=== PATIENT | female | born 1935 | race Caucasian/White ===

== ENCOUNTER 2017-09-01 16:12 | Inpatient (IN) | payer MEDICARE, BC ==
[2017-09-01] MEDS ORDERED: SODIUM CHLORIDE 0.9% 500 ML SOL IV SCH (16:30)
[2017-09-01] MEDS ORDERED: SODIUM CHLORIDE 0.9% 500 ML 500 ML IV SCH ×2 (16:45→20:15)
[2017-09-01 17:04] LABS: BASOPHILS % (AUTO) 0 % (0-3); EOSINOPHILS % (AUTO) 0 % (0-9); HEMATOCRIT 38 % (35-47); MEAN CORPUSCULAR HGB CONC 32.5 gm/dl (32.0-36.0); MEAN CORPUSCULAR VOLUME 94 fL (81-99); MONOCYTES % (AUTO) 4.5 % (0-12); NEUTROPHILS % (AUTO) 81.2 % (37-80)
[2017-09-01 17:29] LABS: ALBUMIN 3.6 gm/dl (3.4-5.0); CALCIUM 9.6 mg/dl (8.5-10.1); POTASSIUM 3.6 mMol/L (3.5-5.1); THYROID STIMULATING HORMONE 1.585 uIU/ml (0.358-3.740)
[2017-09-01] MEDS ORDERED: Non-Formulary Medication MISC (Polyethylene Glycol 3350 [Polyethylene Glycol* (Miralax)] PO PRN (17:53)
[2017-09-01] MEDS ORDERED: POLYETHYLENE GLYCOL 17 GM/1 TBS PDS PO PRN (18:05)
[2017-09-01] MEDS: MORPHINE SULFATE 10 MG/ML SOL IV PRN ×2 (18:21→23:00)
[2017-09-01] MEDS: SODIUM CHLORIDE 0.9% FLUSH 10 ML SOL IV SCH (18:22)
[2017-09-01] MEDS: DEXTROSE/SALINE 0.45/KCL 20MEQ 1,000 ML/1,000 ML SOL IV SCH (18:24)
[2017-09-01] MEDS: MEMANTINE HYDROCHLORIDE 10 MG TAB PO SCH (20:19)
[2017-09-01] MEDS: MIRTAZAPINE 15 MG TAB PO SCH (20:20)
[2017-09-02] MEDS: SODIUM CHLORIDE 0.9% FLUSH 10 ML SOL IV SCH ×6 (02:18→21:16)
[2017-09-02] MEDS: DEXTROSE/SALINE 0.45/KCL 20MEQ 1,000 ML/1,000 ML SOL IV SCH ×2 (03:04→12:55)
[2017-09-02 07:24] LABS: APPEARANCE,URINE Slightly Cloudy; BILIRUBIN,URINE NEGATIVE (NEGATIVE); COLOR,URINE Yellow; GLUCOSE, URINE (UA) NEGATIVE (NEGATIVE); KETONES,URINE NEGATIVE (NEGATIVE); LEUKOCYTE ESTERASE ,URINE NEGATIVE (NEGATIVE); NITRATE,URINE NEGATIVE (NEGATIVE); OCCULT BLOOD,URINE NEGATIVE (NEG-TRACE); PH,URINE 8.5; UROBILINOGEN,URINE 0.2 (0.2-1.0 EU)
[2017-09-02] MEDS: LEVOTHYROXINE SODIUM 50 MCG TAB PO SCH (07:24)
[2017-09-02 07:38] LABS: RBC,URINE NEG (0-3AV/HPF); WBC,URINE 0-1 (0-5AV/HPF)
[2017-09-02] MEDS ORDERED: CEFAZOLIN SODIUM 1 GM PDS IV ONE (07:40)
[2017-09-02] MEDS ORDERED: BUPIVACAINE LIPOSOME 20 ML SUS ONE (07:43)
[2017-09-02] MEDS ORDERED: TRANEXAMIC ACID 100 MG/ML SOL ONE (07:43)
[2017-09-02] MEDS ORDERED: SODIUM CHLORIDE 20 ML 40 ML ONE (07:43)
[2017-09-02] MEDS ORDERED: LACTATED RINGERS 1,000 ML IV ONE (08:00)
[2017-09-02] MEDS: SCOPOLAMINE 1.5MG PATCH TD SCH (08:03)
[2017-09-02] MEDS ORDERED: LIDOCAINE HCL 2% MPF SOL ONE (08:23)
[2017-09-02] MEDS ORDERED: BUPIVACAINE HCL 0.5% MPF 10 ML SOL ONE (08:23)
[2017-09-02] MEDS ORDERED: MIDAZOLAM 2 MG/2 ML SOL ONE (08:39)
[2017-09-02] MEDS ORDERED: FENTANYL 100MCG/2ML SOL ONE (08:40)
[2017-09-02] MEDS ORDERED: CEFAZOLIN SODIUM 1 GM PDS ONE ×2 (08:59→23:39)
[2017-09-02] MEDS ORDERED: EPHEDRINE SULFATE 50 MG/ML SOL ONE (09:37)
[2017-09-02 09:49] LABS: ABO A; ANTIBODY SCREEN Negative; RH TYPE Positive
[2017-09-02] MEDS ORDERED: SODIUM CHLORIDE 0.9% 500 ML 500 ML IV PRN (10:28)
[2017-09-02] MEDS ORDERED: ONDANSETRON HCL 4 MG/2 ML SOL IV PRN (10:28)
[2017-09-02] MEDS ORDERED: BISACODYL 10 MG SUP PR PRN (10:28)
[2017-09-02] MEDS ORDERED: DIPHENHYDRAMINE 25 MG CAP PO PRN (10:28)
[2017-09-02] MEDS ORDERED: ALUMINUM/MAGNESIUM 30 ML SUS PO PRN (10:28)
[2017-09-02] MEDS ORDERED: FLEET ENEMA PR PRN (10:28)
[2017-09-02] MEDS ORDERED: MAGNESIUM HYDROXIDE 30 ML SUS PO PRN (10:28)
[2017-09-02] MEDS ORDERED: ONDANSETRON 4 MG ODT BU PRN (10:28)
[2017-09-02] MEDS: DEXTROSE/SALINE 0.45% 1,000 ML IV SCH ×2 (14:53→15:00)
[2017-09-02] MEDS: MORPHINE SULFATE 10 MG/ML SOL IV PRN ×3 (14:53→21:16)
[2017-09-02] MEDS: DONEPEZIL 5 MG 5 MG TAB PO SCH (15:25)
[2017-09-02] MEDS: MEMANTINE HYDROCHLORIDE 10 MG TAB PO SCH ×2 (15:26→21:19)
[2017-09-02] MEDS: FAMOTIDINE 20 MG TAB PO SCH (15:26)
[2017-09-02] MEDS: PREDNISOLONE ACETATE 1% OPHTH 1 DROP SUS LEFTEYE SCH (15:26)
[2017-09-02] MEDS ORDERED: CEFAZOLIN SODIUM 1 GM PDS 1 GM in SODIUM CHLORIDE 0.9% 50 ML 50 ML IV SCH (16:31)
[2017-09-02] MEDS ORDERED: CEFAZOLIN (PREMIX) 1 GM 1 GM/50 ML SOL IV SCH (16:31)
[2017-09-02] MEDS: WARFARIN SODIUM 5 MG TAB PO SCH (17:29)
[2017-09-02] MEDS: CEFAZOLIN SODIUM 1 GM PDS 1 GM in SODIUM CHLORIDE 0.9% 50 ML 50 ML IV SCH (17:29)
[2017-09-02] MEDS: TRAMADOL HYDROCHLORIDE 50 MG TAB PO PRN (17:30)
[2017-09-02] MEDS: SENNOSIDES A AND B 8.6 MG TAB PO SCH (21:18)
[2017-09-02] MEDS: MIRTAZAPINE 15 MG TAB PO SCH (21:18)
[2017-09-02] MEDS: DIAZEPAM 5 MG TAB PO PRN (21:19)
[2017-09-02] MEDS ORDERED: SODIUM CHLORIDE 0.9% 50 ML 50 ML IV ONE (23:39)
[2017-09-03] MEDS: DEXTROSE/SALINE 0.45% 1,000 ML IV SCH ×2 (01:37→13:08)
[2017-09-03] MEDS: CEFAZOLIN SODIUM 1 GM PDS 1 GM in SODIUM CHLORIDE 0.9% 50 ML 50 ML IV SCH (01:37)
[2017-09-03] MEDS: SODIUM CHLORIDE 0.9% FLUSH 10 ML SOL IV SCH ×3 (02:55→20:03)
[2017-09-03] MEDS: TRAMADOL HYDROCHLORIDE 50 MG TAB PO PRN ×3 (06:35→20:25)
[2017-09-03] MEDS: LEVOTHYROXINE SODIUM 50 MCG TAB PO SCH (06:35)
[2017-09-03 07:42] LABS: MEAN CORPUSCULAR HGB CONC 33.1 gm/dl (32.0-36.0)
[2017-09-03] MEDS: FAMOTIDINE 20 MG TAB PO SCH (09:02)
[2017-09-03] MEDS: PREDNISOLONE ACETATE 1% OPHTH 1 DROP SUS LEFTEYE SCH (09:02)
[2017-09-03] MEDS: DONEPEZIL 5 MG 5 MG TAB PO SCH (09:02)
[2017-09-03] MEDS: MEMANTINE HYDROCHLORIDE 10 MG TAB PO SCH ×2 (09:02→20:25)
[2017-09-03] MEDS: ACETAMINOPHEN 325 MG PO SCH ×4 (09:17→20:26)
[2017-09-03] MEDS: DIAZEPAM 5 MG TAB PO PRN ×2 (12:46→17:11)
[2017-09-03] MEDS: WARFARIN SODIUM 5 MG TAB PO SCH (20:01)
[2017-09-03] MEDS: SENNOSIDES A AND B 8.6 MG TAB PO SCH (20:25)
[2017-09-03] MEDS: MIRTAZAPINE 15 MG TAB PO SCH (20:25)
[2017-09-04] MEDS: DEXTROSE/SALINE 0.45% 1,000 ML IV SCH ×2 (01:30→23:24)
[2017-09-04] MEDS: SODIUM CHLORIDE 0.9% FLUSH 10 ML SOL IV SCH ×3 (02:16→20:15)
[2017-09-04] MEDS: TRAMADOL HYDROCHLORIDE 50 MG TAB PO PRN ×3 (06:13→20:15)
[2017-09-04] MEDS: LEVOTHYROXINE SODIUM 50 MCG TAB PO SCH (06:13)
[2017-09-04 07:21] LABS: MEAN CORPUSCULAR HGB CONC 35.5 gm/dl (32.0-36.0)
[2017-09-04 07:35] LABS: CALCIUM 8.4 mg/dl (8.5-10.1); POTASSIUM 3.6 mMol/L (3.5-5.1)
[2017-09-04] MEDS: MEMANTINE HYDROCHLORIDE 10 MG TAB PO SCH ×2 (08:25→20:14)
[2017-09-04] MEDS: DONEPEZIL 5 MG 5 MG TAB PO SCH (08:26)
[2017-09-04] MEDS: FAMOTIDINE 20 MG TAB PO SCH (08:27)
[2017-09-04] MEDS: PREDNISOLONE ACETATE 1% OPHTH 1 DROP SUS LEFTEYE SCH (08:27)
[2017-09-04] MEDS: ACETAMINOPHEN 325 MG PO SCH ×4 (08:30→20:29)
[2017-09-04] MEDS: WARFARIN SODIUM 5 MG TAB PO SCH (17:24)
[2017-09-04] MEDS: DIAZEPAM 5 MG TAB PO PRN ×2 (18:49→21:06)
[2017-09-04] MEDS: SENNOSIDES A AND B 8.6 MG TAB PO SCH (20:15)
[2017-09-04] MEDS: MIRTAZAPINE 15 MG TAB PO SCH (20:15)
[2017-09-05] MEDS: SODIUM CHLORIDE 0.9% FLUSH 10 ML SOL IV SCH (04:17)
[2017-09-05] MEDS: TRAMADOL HYDROCHLORIDE 50 MG TAB PO PRN ×3 (06:54→23:04)
[2017-09-05] MEDS: LEVOTHYROXINE SODIUM 50 MCG TAB PO SCH (06:54)
[2017-09-05 07:32] LABS: MEAN CORPUSCULAR HGB CONC 34.2 gm/dl (32.0-36.0)
[2017-09-05] MEDS: ACETAMINOPHEN 325 MG PO SCH ×4 (09:01→20:35)
[2017-09-05] MEDS: DONEPEZIL 5 MG 5 MG TAB PO SCH (09:01)
[2017-09-05] MEDS: PREDNISOLONE ACETATE 1% OPHTH 1 DROP SUS LEFTEYE SCH (09:02)
[2017-09-05] MEDS: FAMOTIDINE 20 MG TAB PO SCH (09:02)
[2017-09-05] MEDS: SCOPOLAMINE 1.5MG PATCH TD SCH (09:30)
[2017-09-05] MEDS: MEMANTINE HYDROCHLORIDE 10 MG TAB PO SCH ×2 (10:21→20:34)
[2017-09-05] MEDS: WARFARIN SODIUM 5 MG TAB PO SCH (17:30)
[2017-09-05] MEDS: SENNOSIDES A AND B 8.6 MG TAB PO SCH (20:34)
[2017-09-05] MEDS: MIRTAZAPINE 15 MG TAB PO SCH (20:35)
[2017-09-06 06:35] VITALS: PULSE 74; TEMP 97.6
[2017-09-06] MEDS: LEVOTHYROXINE SODIUM 50 MCG TAB PO SCH (06:49)
[2017-09-06 07:19] LABS: CALCIUM 9.2 mg/dl (8.5-10.1); POTASSIUM 4.1 mMol/L (3.5-5.1)
[2017-09-06 07:27] LABS: BASOPHILS % (AUTO) 1 % (0-3); EOSINOPHILS % (AUTO) 2 % (0-9); HEMATOCRIT 27 % (35-47); MEAN CORPUSCULAR VOLUME 93 fL (81-99); MONOCYTES % (AUTO) 7.6 % (0-12); NEUTROPHILS % (AUTO) 67.1 % (37-80)
[2017-09-06 08:08] VITALS: BP 129/78; RESP 18; O2SAT 100
[2017-09-06] MEDS: MEMANTINE HYDROCHLORIDE 10 MG TAB PO SCH (08:38)
[2017-09-06] MEDS: DONEPEZIL 5 MG 5 MG TAB PO SCH (08:38)
[2017-09-06] MEDS: ACETAMINOPHEN 325 MG PO SCH (08:39)
[2017-09-06] MEDS: PREDNISOLONE ACETATE 1% OPHTH 1 DROP SUS LEFTEYE SCH (08:39)
[2017-09-06] MEDS: FAMOTIDINE 20 MG TAB PO SCH (08:39)
== END 2017-09-06 10:10 | DRG 470 ==
LOC: ACUTE CARE 16:19
PROVIDERS: ADMIT Family Medicine; ATTEND Family Medicine
PROC: 2W3KXYZ Immobilization of Left Finger using Other Device (ICD-10-PCS; 2017-09-02)
PROC: F01ZBZZ Bed Mobility Assessment (ICD-10-PCS; 2017-09-02)
PROC: F01ZCZZ Transfer Assessment (ICD-10-PCS; 2017-09-02)
PROC: F02Z1ZZ Dressing Assessment (ICD-10-PCS; 2017-09-02)
PROC: F02Z3ZZ Grooming/Personal Hygiene Assessment (ICD-10-PCS; 2017-09-02)
PROC: F02Z0ZZ Bathing/Showering Assessment (ICD-10-PCS; 2017-09-02)
PROC: 0SRS0J9 Replacement of Left Hip Joint, Femoral Surface with Synthetic Substitute, Cemented, Open Approach (ICD-10-PCS; principal; 2017-09-02 09:00)
PROC: 3E0T3BZ Introduction of Anesthetic Agent into Peripheral Nerves and Plexi, Percutaneous Approach (ICD-10-PCS; 2017-09-02 09:00)
DX: S72.002A Fracture of unspecified part of neck of left femur, initial encounter for closed fracture (principal); G30.0 Alzheimer's disease with early onset; Z96.642 Presence of left artificial hip joint; F02.80 Dementia in other diseases classified elsewhere, unspecified severity, without behavioral disturbance, psychotic disturbance, mood disturbance, and anxiety; S62.647A Nondisplaced fracture of proximal phalanx of left little finger, initial encounter for closed fracture; W19.XXXA Unspecified fall, initial encounter; R45.1 Restlessness and agitation
CPT/HCPCS: 36415; 73130; 73140; 73501; 73502; 80048; 80053; 81001; 84443; 85025; 85027; 85610; 86850; 86900; 86901; 93005; 94640; 99070; J0690; J2250; J2270; J3010; A4450; A6219; A6232; L1830; Q3014

== ENCOUNTER 2017-09-16 08:43 | Emergency (ER) | payer MEDICARE, BC ==
[2017-09-16 09:00] VITALS: RESP 20
[2017-09-16 09:23] VITALS: BP 148/76; PULSE 75; TEMP 98; O2SAT 99
== END 2017-09-16 10:05 | DRG 605 ==
LOC: ED 08:43
DX: S70.01XA Contusion of right hip, initial encounter (principal); M25.552 Pain in left hip; R40.2242 Coma scale, best verbal response, confused conversation, at arrival to emergency department; W05.0XXA Fall from non-moving wheelchair, initial encounter; R40.2362 Coma scale, best motor response, obeys commands, at arrival to emergency department
CPT/HCPCS: 73521; 99282; 99283

== ENCOUNTER 2017-10-13 10:34 | Outpatient (CLI) | payer MEDICARE, BC ==
[2017-09-16 09:23] VITALS: O2SAT 99
== END 2017-10-13 10:35 | disposition home or self-care (01) | DRG 561 ==
LOC: CONVCARE 10:34
PROVIDERS: ATTEND Orthopaedic Surgery
DX: S72.002D Fracture of unspecified part of neck of left femur, subsequent encounter for closed fracture with routine healing (principal); S62.617D Displaced fracture of proximal phalanx of left little finger, subsequent encounter for fracture with routine healing; Z96.642 Presence of left artificial hip joint
CPT/HCPCS: 73140; 73502

== ENCOUNTER 2017-12-18 10:39 | Emergency (ER) | payer MEDICARE, BC ==
[2017-12-18 10:53] VITALS: RESP 16; TEMP 98.1
[2017-12-18] MEDS ORDERED: BACITRACIN 500 U/GM OIN TOP ONE ×2 (12:10→12:11)
[2017-12-18 12:20] VITALS: BP 114/55; PULSE 74; O2SAT 98
== END 2017-12-18 12:16 | DRG 605 ==
LOC: ED 10:39
DX: S00.93XA Contusion of unspecified part of head, initial encounter (principal); F03.90 Unspecified dementia, unspecified severity, without behavioral disturbance, psychotic disturbance, mood disturbance, and anxiety; W06.XXXA Fall from bed, initial encounter; R40.2362 Coma scale, best motor response, obeys commands, at arrival to emergency department; R40.2142 Coma scale, eyes open, spontaneous, at arrival to emergency department; R40.2242 Coma scale, best verbal response, confused conversation, at arrival to emergency department
CPT/HCPCS: 70450; 72125; 99284; A9270-GY

== ENCOUNTER 2018-03-04 21:27 | Emergency (ER) | payer MEDICARE, BC ==
[2018-03-04 22:27] VITALS: BP 131/63; PULSE 77; RESP 18; TEMP 98; O2SAT 97
== END 2018-03-04 22:32 | disposition home or self-care (01) | DRG 556 ==
LOC: ED 21:27
DX: M25.551 Pain in right hip (principal); W05.0XXA Fall from non-moving wheelchair, initial encounter; Z91.81 History of falling; I10 Essential (primary) hypertension; F03.90 Unspecified dementia, unspecified severity, without behavioral disturbance, psychotic disturbance, mood disturbance, and anxiety; R40.2352 Coma scale, best motor response, localizes pain, at arrival to emergency department; R40.2242 Coma scale, best verbal response, confused conversation, at arrival to emergency department; R40.2132 Coma scale, eyes open, to sound, at arrival to emergency department
CPT/HCPCS: 70450; 99283

== ENCOUNTER 2018-10-02 17:20 | Emergency (ER) | payer MEDICARE, BC ==
[2018-10-02 17:57] VITALS: RESP 18
[2018-10-02] MEDS ORDERED: SODIUM CHLORIDE 0.9% 250 ML 250 ML IV ONE (17:57)
[2018-10-02 18:33] LABS: HEMATOCRIT 45 % (35-47); HEMOGLOBIN 14.8 gm/dl (12.0-15.5); MEAN CORPUSCULAR HGB CONC 33.2 gm/dl (32.0-36.0); MEAN CORPUSCULAR VOLUME 93 fL (81-99)
[2018-10-02 18:50] LABS: ALBUMIN 3.6 gm/dl (3.4-5.0); BILIRUBIN,TOTAL 0.4 mg/dl (0.2-1.0); CALCIUM 9.7 mg/dl (8.5-10.1); CARBON DIOXIDE 24.4 mEq/L (21-32); CREATININE 0.94 mg/dl (0.60-1.00); POTASSIUM 4.3 mMol/L (3.5-5.1); TOTAL PROTEIN 7.8 gm/dl (6.4-8.2)
[2018-10-02] MEDS ORDERED: HYDROMORPHONE 1 MG/ML SYRINGE ONE ×2 (18:59→22:56)
[2018-10-02] MEDS ORDERED: HYDROMORPHONE 1 MG/ML SYRINGE IV ONE ×2 (19:00→22:55)
[2018-10-02 19:31] LABS: BAND NEUTROPHILS % (MANUAL) 1 %; BASOPHILS % (MANUAL) 0 % (0-3); EOSINOPHILS % (MANUAL) 1 % (0-9); LYMPHOCYTES % (MANUAL) 33 % (10-50); MONOCYTES % (MANUAL) 5 % (0-12); NEUTROPHILS % (MANUAL) 60 % (37-80); NORMAL RBCS NORMAL RBCS
[2018-10-02 19:32] LABS: PLATELET MORPHOLOGY COMMENT FEW PLT CLUMPS SEEN
[2018-10-02 23:15] VITALS: BP 145/74; PULSE 81; TEMP 98; O2SAT 91
== END 2018-10-02 23:08 | disposition short-term general hospital (02) | DRG 535 ==
LOC: ED 17:20
DX: S72.001A Fracture of unspecified part of neck of right femur, initial encounter for closed fracture (principal); R40.2222 Coma scale, best verbal response, incomprehensible words, at arrival to emergency department; R40.2362 Coma scale, best motor response, obeys commands, at arrival to emergency department; R40.2142 Coma scale, eyes open, spontaneous, at arrival to emergency department; W18.39XA Other fall on same level, initial encounter
CPT/HCPCS: 70450; 72125; 72192; 73501; 80053; 85007; 85027; 96365; 96366; 96374; 99284; 99285; L0130; J1170

== ENCOUNTER 2019-04-15 09:23 | Emergency (ER) | payer MEDICARE, BC ==
[2019-04-15 09:39] VITALS: RESP 18; TEMP 97.1
[2019-04-15 12:37] VITALS: BP 105/65; PULSE 70; O2SAT 99
== END 2019-04-15 11:55 | DRG 555 ==
LOC: ED 09:23
DX: M62.49 Contracture of muscle, multiple sites (principal); R40.2112 Coma scale, eyes open, never, at arrival to emergency department; R40.2222 Coma scale, best verbal response, incomprehensible words, at arrival to emergency department; R40.2332 Coma scale, best motor response, abnormal flexion, at arrival to emergency department; F02.80 Dementia in other diseases classified elsewhere, unspecified severity, without behavioral disturbance, psychotic disturbance, mood disturbance, and anxiety; G30.0 Alzheimer's disease with early onset
CPT/HCPCS: 70450; 73610; 99283; 99284